=== PATIENT | male | born 1980 | race Caucasian/White ===

== ENCOUNTER 2021-10-05 10:33 | Day surgery (SDC) | payer BC, OTHER ==
[~2021-10-05] VITALS: Ht 170.2 cm; Wt 105.3 kg
[~2021-10-05 10:33] MED LIST: IBUP800 PO; NAPR220 PO; OXYACE5T PO; PROM25 PO
--- NOTE | 2021-10-05 15:38 | NUR ---
10/05/[address] CAME BACK IN WROTE A RX FOR ORAL PAIN MEDS AND SAW THE PATIENT UPON DISCHARGE
== END 2021-10-05 15:33 | disposition home or self-care (01) ==
LOC: ORSCSDS 10:33
PROVIDERS: Orthopaedic Surgery
PROC: 0SBC4ZZ Excision of Right Knee Joint, Percutaneous Endoscopic Approach (ICD-10-PCS; principal; 2021-10-05 11:45)
DX: S83.281A Other tear of lateral meniscus, current injury, right knee, initial encounter (principal); M17.11 Unilateral primary osteoarthritis, right knee; F17.210 Nicotine dependence, cigarettes, uncomplicated; F32.A Depression, unspecified; E66.01 Morbid (severe) obesity due to excess calories; Z68.36 Body mass index [BMI] 36.0-36.9, adult
CPT/HCPCS: J0690; J1100; J1885; J2405; J2704; J3010; J7120